=== PATIENT | female | born 1995 | race Caucasian/White ===

== ENCOUNTER 2020-01-31 04:51 | Inpatient (IN) | payer OTHER ==
[~2020-01-31] VITALS: Ht 157.5 cm; Wt 61.2 kg
[2020-01-31 04:51] VITALS: BP 120/81
[2020-01-31 07:04] LABS: ABSOLUTE NEUTROPHILS 9.2 thou/uL (1.4-8.2); BASOPHILS 0.1 % (0.0-2.0); EOSINOPHILS 0.7 % (0.0-3.0); HEMATOCRIT 38.2 % (37.0-47.0); HEMOGLOBIN 12.7 gm/dL (12.0-15.0); LYMPHOCYTES 10.3 % (24.0-44.0); MCH 31.5 pg (26.0-34.0); MCHC 33.4 g/dL (28.0-37.0); MCV 94.2 fL (80.0-100.0); MONOCYTES 6.6 % (1.0-8.0); PLATELET COUNT 141 thou/uL (150-400); POLYS 82.3 % (36.0-66.0); RBC 4.05 mil/uL (4.20-5.00); RDW 13.4 % (10.5-14.5); WBC 11.2 thou/uL (4.0-11.0)
[2020-01-31 07:21] LABS: CALCIUM 8.5 mg/dL (8.5-10.1); CREATININE 0.8 mg/dL (0.6-1.0); POTASSIUM 3.5 mmol/L (3.5-5.1)
[2020-01-31 09:22] VITALS: BP 118/76
[2020-01-31 10:05] VITALS: BP 107/73; BP 115/76
[2020-01-31 14:12] VITALS: BP 105/72
--- NOTE | 2020-01-31 19:42 | NUR ---
A/O, calm and cooprative. vss, afebrile, no n/v. denied pain during the shift.
[2020-01-31 20:09] VITALS: BP 94/51
[2020-02-01 00:14] VITALS: BP 105/54
[2020-02-01 04:43] VITALS: BP 97/59
--- NOTE | 2020-02-01 06:57 | NUR ---
ASSUMED PT CARE AROUND 1930. AXOX4. CALL APPROPRIATELY FOR HELP. L HAND DRESSING CDI. CHOCOLATE ON DRESSING, NOT BLOOD. CONFIRMED BY PT. LOW BP ADDRESSED TO HOSE FINISHER CLINICAL TRIAL MANAGER. PT ALREADY ON HYDRATION. NNO AT THIS TIME. NO S/S ACUTE DISTRESS NOTED OR REPORTED AT THIS TIME. WILL CONT TO MONITOR FOR ANY CHANGES IN CONDITION.
[2020-02-01 07:49] VITALS: BP 95/62
--- NOTE | 2020-02-01 08:12 | O ---
[facility] [place] [address] OPERATIVE REPORT Name: CRYSTAL JOY Room #: 456-P ADM IN M.R.#: [id number] Admission: 01/31/20 Attend Phys: Flor Olmos Discharge: Date of : 89 Report #: [id number] THIS REPORT FOR: cc: VICENTE - No family physician/PCP VICENTE - [facility]/PCP Guillaume Aguilar MD ~ CC: [facility] physician/PCP Flor Aguilar DATE OF SERVICE: 01/31/2020 PREOPERATIVE DIAGNOSIS: Left hand palmar abscess. POSTOPERATIVE DIAGNOSIS: Left hand palmar abscess. PROCEDURE: Left hand irrigation and debridement palmar abscess. SURGEON: Dr. Guillaume Aguilar. ASSISTANT NEWS DIRECTOR: Maegan Cantu. ANESTHESIA: General. ESTIMATED BLOOD LOSS: Minimal. DRAINS: No drains. TOURNIQUET TIME: 15 minutes. DESCRIPTION OF PROCEDURE: The patient was brought to the operating room where she was placed under general anesthesia. Once under adequate general anesthesia, her left upper extremity was prepped and draped in sterile manner. The extremity was elevated and tourniquet placed to 300 mmHg. A zigzag incision excising an entrance wound overlying the metacarpophalangeal joint of the third finger was then made. Blunt dissection was carried down through the soft tissues. Abundant purulence was noted extending to the flexor of the index and the middle fingers. The purulence was then cultured and evacuated. Subsequently, the wound was irrigated copiously with normal saline solution. A rongeur was used to remove any necrotic tissue. Once complete, the wound was irrigated once again copiously and closed with the proximal and distal limbs of the zigzag incision closed with 3-0 nylon suture. The wound was then dressed with a sterile soft compressive dressing with a saline soaked gauze, 4 x 4s, soft roll and Grayson. Tourniquet was let down at 15 minutes. Fingers were pink and warm with good capillary refill. There were no complications from the [address] [address] OPERATIVE REPORT Name: CRYSTAL JOY LYNNWOOD Room #: 456-P [facility] IN M.R.#: [id number] Admission: 01/31/20 Attend Phys: Flor Olmos Discharge: Date of : 89 Report #: [id number] procedure. The patient tolerated the procedure well and went to the recovery room without incident. <ELECTRONICALLY SIGNED> By: Guillaume Aguilar MD 02/01/20 0812 [id number] [id number] Guilalume Aguilar MD /nt
--- NOTE | 2020-02-01 14:03 | NUR ---
ASSUMED CARE AT 0700. PT IS ALERT AND ORIENTED. C/O PAIN, PRN MEDS GIVEN ORDERED. VSSA/RA. TOLERATING DIET. GI/ NML. MONITORING BLOOD SUGARS. PIV WITHOUT ISSUES. LEFT HAND DRESSING C/D/I. PT UAL. CALL LIGHT IN REACH IF NEEDS ARISE. PT IS WANTING TO LEAVE. PER DR STANLEY SHE WOULD NEED TO LEAVE AMA WE ARE WAITING FOR RESULTS OF CULTURE FOR APPROP ANTIBIOTICS. PT WANTS TO GO OUTSIDE TO SMOKE AND HAS BEEN TOLD SHE IS NOT ABLE TO. DISCUSSED WITH PT THAT IT IS HER CHOICE TO LEAVE OR NOT, AND DISCUSSED WTIH HER THE RISK FACTORS OF LEAVING. ASKED PT TO CALL RN IF SHE DECIDES SHE DOES STILL WANT TO LEAVE AND WE WILL HAVE HER SIGN PAPERWORK. WILL CONTINUE TO MONITOR
[2020-02-01 15:01] VITALS: BP 98/54
--- NOTE | 2020-02-01 16:37 | NUR ---
CM ADMITTED RELATED TO CELLULITIS. CM REVIEWED CHART AND SPOKE WITH CARE TEAM. CM CALLED PT THIS AFTERNOON AND SHE INDICATED THAT SHE LIVES IN A HOUSE WITH MOM ZACH 20 STEPS INSIDE. 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 PT INDICATED NO PCP. CM PROVIDED [facility] PACKET AND RESOURCES FOR SUBSTANCE ABUSE PROGRAMMING. PT PLANS TO RETURN HOME ONCE MEDICALLY STABLE. PT MIGHT NEED ASSIST WITH ORAL ABX UPON DC. CM TO FOLLOW INDICATED WITH DC PLANNING.
[2020-02-02 00:06] LABS: HAV IgM AB (ANTI-HAV IgM) Negative (Negative); HEPATITIS B SURFACE AG Negative (Negative); HEPATITIS C VIRUS AB 0.5 (0.0-0.9); HIV ANTIBODY Non Reactive (Non Reactive)
== END 2020-02-01 17:49 | disposition left against medical advice (07) | DRG 581 ==
LOC: ER 04:51 → EROBS 08:45 → 4W 09:54
PROVIDERS: Emergency Medicine; ADMIT Hospitalist; ATTEND Hospitalist
PROC: 0JBK0ZZ Excision of Left Hand Subcutaneous Tissue and Fascia, Open Approach (ICD-10-PCS; principal; 2020-01-31)
DX: L03.114 Cellulitis of left upper limb (principal); F17.210 Nicotine dependence, cigarettes, uncomplicated; F15.11 Other stimulant abuse, in remission; Z20.828 Contact with and (suspected) exposure to other viral communicable diseases
CPT/HCPCS: 10040; 50101; 50386; 56527; 57091; 57178; 62110; 62900